=== PATIENT | male | born 1930 | race Caucasian/White ===

== ENCOUNTER 2017-10-29 19:26 | Emergency (ER) | payer MEDICARE, OTHER ==
--- NOTE | 2017-10-29 19:40 | ER Document Report ---
ED General - General Chief Complaint: General Weakness Stated Complaint: WEAKNESS Time Seen by Provider: 10/29/17 19:32 Notes: Patient is an 87-year-old male that comes emergency department by EMS from [facility] for chief complaint of weakness. EMS states they initially were called out for change in behavior and aggressiveness although on arrival patient was calm, relaxed, cooperative. Patient states he just "does not feel right" and he feels "weak all over". He denies specific headache, chest pain, shortness of breath, fever/chills, nausea/vomiting. He states he did eat today. Past medical history includes CVA, CAD, dementia, BPH, and reported lung mass per paperwork. Patient has DO NOT RESUSCITATE paperwork with him. TRAVEL OUTSIDE OF THE [place] IN LAST 30 DAYS: No Past Medical History - General Information source: Patient, Transfer Record, Emergency Med Personnel - Social History Smoking Status: Never Smoker Frequency of alcohol use: None Drug Abuse: None [facility] with: [facility] Family History: Reviewed & Not Pertinent - Past Medical History Cardiac Medical History: Reports: Hx Coronary Artery Disease Neurological Medical History: Reports: Hx Cerebrovascular Accident Malignancy Medical History: Reports Hx Lung Cancer - Immunizations Hx Diphtheria, Pertussis, Tetanus Vaccination: Yes Review of Systems - Review of Systems Constitutional: See HPI EENT: No symptoms reported Cardiovascular: No symptoms reported Respiratory: No symptoms reported Gastrointestinal: No symptoms reported Genitourinary: No symptoms reported Male Genitourinary: No symptoms reported Musculoskeletal: No symptoms reported Skin: No symptoms reported Hematologic/Lymphatic: No symptoms reported Neurological/Psychological: See HPI Physical Exam - Vital signs Vitals: Temp 98.0 F 10/29/17 19:37 - Notes Notes: GENERAL: Patient sitting on the bed with his eyes closed. He will open his eyes when prompted, he will follow directions, he appears drowsy but he does not appear to be in any distress. HEAD: Normocephalic, atraumatic. EYES: Pupils equal, round, and reactive to light. Extraocular movements intact. ENT: Oral mucosa moist, tongue midline. [Nares patent, no nasal septal hematoma , TM's intact.] NECK: Full range of motion. Supple. Trachea midline. LUNGS: Clear to auscultation bilaterally, no wheezes, rales, or rhonchi. No respiratory distress. HEART: Regular rate and rhythm. Systolic murmur. ABDOMEN: Soft, non-tender. Non-distended. Bowel sounds present in all 4 quadrants. EXTREMITIES: Moves all 4 extremities spontaneously. No edema, normal radial and dorsalis pedis pulses bilaterally. No cyanosis. BACK: no cervical, thoracic, lumbar midline tenderness. No saddle anesthesia, normal distal neurovascular exam. NEUROLOGICAL: Patient oriented to person and place, normal speech, unable to give me details about earlier today [cranial nerves II through XII grossly intact]. SKIN: Warm, dry, normal turgor. No rashes or lesions noted. Course - Re-evaluation Re-evalutation: Patient complains he does not "feel right" and he feels weak. General assessment was performed based on his altered behavior and his complaint, CBC, chemistry, urinalysis are generally unremarkable. BUN mildly elevated. Troponin is not elevated, CK is unremarkable. Chest x-ray shows no mass, CT of the head is unremarkable. Vital signs unremarkable. Patient was given IV fluids, afterwards he was fed, after this he states he feels great, no complaints. Discussed evaluation, patient will be discharged back to long-term care facility, patient states agreement with this plan. Stable at time of discharge. - Vital Signs Vital signs: Temp Pulse Resp BP Pulse Ox 97.9 F 18 127/55 H 100 10/29/17 22:01 10/29/17 22:23 10/29/17 22:23 10/29/17 22:23 - Laboratory Result Diagrams: 10/29/17 20:00 10/29/17 20:00 Laboratory results interpreted by me: 10/29/17 10/29/17 10/29/17 19:33 20:00 20:00 RBC 3.18 L Hgb 10.1 L Hct 29.8 L RDW 15.1 H BUN 24 H Est GFR (Non-Af Amer) 58 L Glucose 115 H Total Protein 6.2 L Urine Blood SMALL H Discharge - Discharge Clinical Impression: Generalized weakness, Outbursts of explosive behavior Condition: Stable Disposition: HOME, SELF-CARE Additional Instructions: No concerning abnormality is seen on evaluation of weakness and behavioral outbursts. He was treated for some dehydration. No evidence of infection other concerning findings at this time. Follow-up with his provider for additional evaluation and management. Return to the emergency department for any concerning or worsening symptoms - fever, passing out, or any other concerning symptoms. Referrals: ROBERT ARENAS, ROVING DEPARTMENT SUPERVISOR [Primary Care Provider] - Follow up as needed
[2017-10-29 19:50] LABS: APPEARANCE,URINE CLEAR; BILIRUBIN,URINE NEGATIVE (NEGATIVE); COLOR,URINE YELLOW; GLUCOSE, URINE NEGATIVE (NEGATIVE); KETONES,URINE NEGATIVE (NEGATIVE); LEUKOCYTE ESTERASE,URINE NEGATIVE (NEGATIVE); NITRITE,URINE NEGATIVE (NEGATIVE); PROTEIN,URINE NEGATIVE (NEGATIVE); URINE SPECIFIC GRAVITY 1.015; UROBILINOGEN,URINE NEGATIVE mg/dL (<2.0)
[2017-10-29 20:18] LABS: ABSOLUTE EOSINOPHILS # (AUTO) 0.1 10^3/uL (0.0-0.6); ABSOLUTE LYMPHOCYTES (AUTO) 0.9 10^3/uL (0.5-4.7); ABSOLUTE MONOCYTES (AUTO) 0.4 10^3/uL (0.1-1.4); ABSOLUTE NEUT (AUTO) 4.5 10^3/uL (1.7-8.2); BASOPHILS % (AUTO) 0.3 % (0-2); EOSINOPHILS % (AUTO) 1.1 % (0-6); HEMATOCRIT 29.8 % (37.9-51.0); HEMOGLOBIN 10.1 g/dL (13.5-17.0); LYMPHOCYTES % (AUTO) 15.4 % (13-45); MEAN CORPUSCULAR HEMOGLOBIN 31.8 pg (27.0-33.4); MEAN CORPUSCULAR HGB CONC 33.9 g/dL (32.0-36.0); MEAN CORPUSCULAR VOLUME 94 fl (80-97); MONOCYTES % (AUTO) 7.4 % (3-13); PLATELET COUNT 186 10^3/uL (150-450); RED BLOOD COUNT 3.18 10^6/uL (4.35-5.55); RED CELL DISTRIBUTION WIDTH 15.1 % (11.5-14.0); SEGMENTED NEUTROPHILS % (AUTO) 75.8 % (42-78); TOTAL CELLS COUNTED % (AUTO) 100 %
--- NOTE | 2017-10-29 20:27 | RADIOLOGY REPORT (SQ) ---
EXAM DESCRIPTION: CHEST SINGLE VIEW COMPLETED DATE/TIME: 10/29/2017 8:10 pm REASON FOR STUDY: weakness COMPARISON: None. EXAM PARAMETERS: NUMBER OF VIEWS: One view. TECHNIQUE: Single frontal radiographic view of the chest acquired. RADIATION DOSE: NA LIMITATIONS: None. FINDINGS: LUNGS AND PLEURA: There appears to be a 2 cm suprahilar mass on the left. MEDIASTINUM AND HILAR STRUCTURES: No masses. Contour normal. HEART AND VASCULAR STRUCTURES: Heart normal in size. Normal vasculature. BONES: No acute findings. HARDWARE: None in the chest. OTHER: No other significant finding. IMPRESSION: Left suprahilar mass. TECHNICAL DOCUMENTATION: JOB ID: [id number] [employer]- All Rights Reserved Reading location - IP/workstation name: [email or web address]
[2017-10-29 20:29] LABS: ALANINE AMINOTRANSFERASE 30 U/L (21-72); ALBUMIN 3.7 g/dL (3.5-5.0); ALKALINE PHOSPHATASE 54 U/L (38-126); ANION GAP 9 (5-19); ASPARTATE AMINO TRANSFERASE 33 U/L (17-59); BILIRUBIN,DIRECT 0.2 mg/dL (0.0-0.4); BILIRUBIN,TOTAL 0.5 mg/dL (0.2-1.3); BLOOD UREA NITROGEN 24 mg/dL (7-20); CALCIUM 8.9 mg/dL (8.4-10.2); CARBON DIOXIDE 28 mmol/L (22-30); CHLORIDE 104 mmol/L (98-107); CREATINE KINASE 105 U/L (55-170); GLUCOSE 115 mg/dL (75-110); POTASSIUM 4.2 mmol/L (3.6-5.0); SODIUM 141.2 mmol/L (137-145); TOTAL PROTEIN 6.2 g/dL (6.3-8.2)
[2017-10-29] MEDS ORDERED: NORMAL SALINE 1000 ML 500 ML IV ONE (20:32)
--- NOTE | 2017-10-29 21:13 | RADIOLOGY REPORT (SQ) ---
EXAM DESCRIPTION: CT HEAD WITHOUT COMPLETED DATE/TIME: 10/29/2017 8:27 pm REASON FOR STUDY: weakness, AMS, hx lung cancer COMPARISON: None. TECHNIQUE: Axial images acquired through the brain without intravenous contrast. Images reviewed wi th bone, brain and subdural windows. Additional sagittal and coronal reconstructions were generated. Images stored on PACS. All CT scanners at this facility use dose modulation, iterative reconstruction, and/or weight based d osing when appropriate to reduce radiation dose to as low as reasonably achievable (ALARA). [facility]: Dose Right [facility]: CareDose [facility]: Dose Right [facility]: Teradose 4D [facility]: Smart SpinSnap RADIATION DOSE: CT Rad equipment meets quality standard of care and radiation dose reduction techniq ues were employed. CTDIvol: 53.2 mGy. DLP: 1044 mGy-cm. mGy. LIMITATIONS: None. FINDINGS: VENTRICLES: Prominent ventricles secondary to involutional atrophy. CEREBRUM: Cortical atrophy. No masses. No hemorrhage. No midline shift. No evidence for acute inf arction. Extensive areas of low density in the white matter most likely chronic small vessel ischemic changes. CEREBELLUM: No masses. No hemorrhage. No alteration of density. No evidence for acute infarction. EXTRAAXIAL SPACES: No fluid collections. No masses. ORBITS AND GLOBE: No intra- or extraconal masses. Normal contour of globe without masses. CALVARIUM: No fracture. PARANASAL SINUSES: No fluid or mucosal thickening. SOFT TISSUES: No mass or hematoma. OTHER: No other significant finding. IMPRESSION: MICROVASCULAR ISCHEMIA AND GENERALIZED ATROPHY. NO ACUTE IMAGING FINDINGS IN THE BRAIN EVIDENCE OF ACUTE STROKE: NO. COMMENT: Quality ID # [id number]: Final reports with documentation of one or more dose reduction techniques (e.g., Automated exposure control, adjustment of the mA and/or kV according to patient size, use of iterative reconstruction technique) TECHNICAL DOCUMENTATION: JOB ID: [id number] [employer]- All Rights Reserved Reading location - IP/workstation name: [email or web address]
[2017-10-29 21:18] VITALS: BP 127/55
--- NOTE | 2017-10-29 21:34 | EKG REPORT ---
SEVERITY:- ABNORMAL ECG - SINUS RHYTHM FIRST DEGREE AV BLOCK RIGHT BUNDLE BRANCH BLOCK : Confirmed by: Carlene Arroyo 29-Oct-2017 21:33:12
== END 2017-10-29 22:51 | disposition home or self-care (01) ==
LOC: ER 19:26
DX: R53.1 Weakness (principal); R46.89 Other symptoms and signs involving appearance and behavior; I25.10 Atherosclerotic heart disease of native coronary artery without angina pectoris; Z66 Do not resuscitate; Z86.73 Personal history of transient ischemic attack (TIA), and cerebral infarction without residual deficits; Z85.118 Personal history of other malignant neoplasm of bronchus and lung
CPT/HCPCS: 93005; 99285; 36415; 82550; 85025; 80053; 81001; 84484; 71045; 70450; 93010; J7030

== ENCOUNTER 2017-11-07 17:53 | Emergency (ER) | payer OTHER, MEDICARE ==
[2017-11-07] MEDS: HALOPERIDOL 2 MG TABLET PO ONE ×2 (20:49→21:53)
[2017-11-07 20:50] LABS: ABSOLUTE EOSINOPHILS # (AUTO) 0.1 10^3/uL (0.0-0.6); ABSOLUTE LYMPHOCYTES (AUTO) 1.1 10^3/uL (0.5-4.7); ABSOLUTE MONOCYTES (AUTO) 0.5 10^3/uL (0.1-1.4); ABSOLUTE NEUT (AUTO) 4.6 10^3/uL (1.7-8.2); BASOPHILS % (AUTO) 0.3 % (0-2); EOSINOPHILS % (AUTO) 2.3 % (0-6); HEMATOCRIT 31.1 % (37.9-51.0); HEMOGLOBIN 10.4 g/dL (13.5-17.0); LYMPHOCYTES % (AUTO) 17.5 % (13-45); MEAN CORPUSCULAR HEMOGLOBIN 30.9 pg (27.0-33.4); MEAN CORPUSCULAR HGB CONC 33.3 g/dL (32.0-36.0); MEAN CORPUSCULAR VOLUME 93 fl (80-97); MONOCYTES % (AUTO) 7.3 % (3-13); PLATELET COUNT 184 10^3/uL (150-450); RED BLOOD COUNT 3.36 10^6/uL (4.35-5.55); RED CELL DISTRIBUTION WIDTH 15.3 % (11.5-14.0); SEGMENTED NEUTROPHILS % (AUTO) 72.6 % (42-78); TOTAL CELLS COUNTED % (AUTO) 100 %; WHITE BLOOD COUNT 6.4 10^3/uL (4.0-10.5)
[2017-11-07 21:06] LABS: ALANINE AMINOTRANSFERASE 29 U/L (21-72); ALKALINE PHOSPHATASE 59 U/L (38-126); ANION GAP 12 (5-19); ASPARTATE AMINO TRANSFERASE 24 U/L (17-59); BILIRUBIN,DIRECT 0.2 mg/dL (0.0-0.4); BILIRUBIN,TOTAL 0.4 mg/dL (0.2-1.3); BLOOD UREA NITROGEN 21 mg/dL (7-20); CARBON DIOXIDE 24 mmol/L (22-30); CHLORIDE 104 mmol/L (98-107); GLUCOSE 90 mg/dL (75-110); POTASSIUM 4.2 mmol/L (3.6-5.0); SODIUM 140.1 mmol/L (137-145); TOTAL PROTEIN 6.8 g/dL (6.3-8.2)
[2017-11-07 21:10] LABS: ALCOHOL < 10 mg/dL (NONE DETECTED)
--- NOTE | 2017-11-07 21:23 | EKG REPORT ---
SEVERITY:- ABNORMAL ECG - SINUS RHYTHM FIRST DEGREE AV BLOCK BORDERLINE LEFT AXIS DEVIATION NONSPECIFIC REPOL ABNORMALITY, DIFFUSE LEADS : Confirmed by: Maya Chavez MD 07-Nov-2017 21:22:32
[2017-11-07 22:25] LABS: APPEARANCE,URINE CLEAR; BILIRUBIN,URINE NEGATIVE (NEGATIVE); COLOR,URINE YELLOW; GLUCOSE, URINE NEGATIVE (NEGATIVE); KETONES,URINE NEGATIVE (NEGATIVE); LEUKOCYTE ESTERASE,URINE NEGATIVE (NEGATIVE); NITRITE,URINE NEGATIVE (NEGATIVE); PROTEIN,URINE NEGATIVE (NEGATIVE); URINE SPECIFIC GRAVITY 1.012; UROBILINOGEN,URINE NEGATIVE mg/dL (<2.0)
[2017-11-07 22:38] LABS: URINE AMPHETAMINES SCREEN NEGATIVE; URINE BARBITURATES SCREEN NEGATIVE; URINE BENZODIAZEPINES SCREEN NEGATIVE; URINE COCAINE SCREEN NEGATIVE; URINE MARIJUANA (THC) SCREEN NEGATIVE; URINE METHADONE SCREEN NEGATIVE; URINE PHENCYCLIDINE SCREEN NEGATIVE
[2017-11-07] MEDS ORDERED: HALOPERIDOL 2 MG TABLET PO ONE (22:55)
[2017-11-07] MEDS ORDERED: LORAZEPAM 0.5 MG TABLET PO ONE (22:55)
[2017-11-07] MEDS ORDERED: LORAZEPAM 1 MG TABLET PO ONE (23:41)
[2017-11-08] MEDS ORDERED: HALOPERIDOL 2 MG TABLET PO PRN (03:58)
[2017-11-08] MEDS ORDERED: LORAZEPAM 1 MG TABLET PO PRN (03:59)
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
--- NOTE | 2017-11-08 09:58 | ER Document Report ---
Doctor's Note Notes: 11/08/17 09:55 Medical rounds: Chart reviewed and patient interviewed briefly. Vital signs are satisfactory. Laboratory values are satisfactory. Patient was apparently asleep, but was easily arousable. He denied any somatic complaints. He is medically stable at this time. Medication changes have been made per recommendations from psych team. Discharge planning will be engaged to begin seeking appropriate placement for this patient.
[2017-11-08] MEDS: CLOPIDOGREL BISULFATE 75 MG TABLET PO SCH (11:16)
[2017-11-08] MEDS: DIVALPROEX SODIUM 500 MG TAB.SR.24H PO SCH ×2 (11:16→17:12)
[2017-11-08] MEDS: ASPIRIN 81 MG TABLET, CHEWABLE PO SCH (11:16)
[2017-11-08] MEDS: BUSPIRONE HCL 10 MG TABLET PO SCH ×2 (11:16→17:12)
[2017-11-08] MEDS: LISINOPRIL 5 MG TABLET PO SCH (11:16)
[2017-11-08] MEDS ORDERED: TUBERCULIN,PURIF.PROT.DERIV. 5 TU/0.1 ML TEST 1 ML VIAL ID ONE (13:26)
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
[2017-11-09] MEDS: LISINOPRIL 5 MG TABLET PO SCH (10:46)
[2017-11-09] MEDS: ASPIRIN 81 MG TABLET, CHEWABLE PO SCH (10:46)
[2017-11-09] MEDS: BUSPIRONE HCL 10 MG TABLET PO SCH ×2 (10:46→18:12)
[2017-11-09] MEDS: CLOPIDOGREL BISULFATE 75 MG TABLET PO SCH (10:46)
[2017-11-09] MEDS: DIVALPROEX SODIUM 500 MG TAB.SR.24H PO SCH ×2 (10:46→18:12)
--- NOTE | 2017-11-10 10:13 | ER Document Report ---
Doctor's Note Notes: 11/10/17 10:12 Rounds: Patient is a social hold here in the emergency department. Patient is sleeping very soundly at this time so I am not going to awaken him. Review of his chart says that he has cancer of the lung. Also suffers from agitation and anxiety. Under hospice care. Has been residing at [facility], but is not eligible to return to that facility. Vital signs are all essentially normal. Lab studies on admission were normal. Patient appears to be medically stable for transfer or discharge. Briana Coburn MD
[2017-11-10] MEDS: LISINOPRIL 5 MG TABLET PO SCH (10:22)
[2017-11-10] MEDS: CLOPIDOGREL BISULFATE 75 MG TABLET PO SCH (10:23)
[2017-11-10] MEDS: ASPIRIN 81 MG TABLET, CHEWABLE PO SCH (10:23)
[2017-11-10] MEDS: DIVALPROEX SODIUM 500 MG TAB.SR.24H PO SCH ×2 (10:23→18:46)
[2017-11-10] MEDS: BUSPIRONE HCL 10 MG TABLET PO SCH ×2 (10:23→18:46)
[2017-11-10] MEDS: ACETAMINOPHEN 325 MG TABLET PO PRN ×2 (16:43→22:48)
--- NOTE | 2017-11-11 09:55 | ER Document Report ---
Doctor's Note Notes: 11/11/17 09:49 Rounds: Patient is a social hold because he was living at [facility] and his behavior became too aggressive towards staff and other residents. He remains stable here and acts appropriately. Lab studies done a few days ago were all essentially normal. His vital signs remained normal at all times. Yesterday the patient had a headache for which I prescribed some Tylenol and he says his headache went away and has not returned. Patient appears to be medically stable for discharge or transfer. rBiana Coburn MD
[2017-11-11] MEDS: CLOPIDOGREL BISULFATE 75 MG TABLET PO SCH (10:01)
[2017-11-11] MEDS: DIVALPROEX SODIUM 500 MG TAB.SR.24H PO SCH ×2 (10:01→17:14)
[2017-11-11] MEDS: BUSPIRONE HCL 10 MG TABLET PO SCH ×2 (10:01→17:14)
[2017-11-11] MEDS: ASPIRIN 81 MG TABLET, CHEWABLE PO SCH (10:01)
[2017-11-11] MEDS: LISINOPRIL 5 MG TABLET PO SCH (10:01)
[2017-11-11] MEDS: ZOLPIDEM TARTRATE 5 MG TABLET PO PRN (21:10)
[2017-11-11] MEDS: ACETAMINOPHEN 325 MG TABLET PO PRN (21:11)
[2017-11-12] MEDS: CLOPIDOGREL BISULFATE 75 MG TABLET PO SCH (09:36)
[2017-11-12] MEDS: LISINOPRIL 5 MG TABLET PO SCH (09:36)
[2017-11-12] MEDS: ASPIRIN 81 MG TABLET, CHEWABLE PO SCH (09:36)
[2017-11-12] MEDS: DIVALPROEX SODIUM 500 MG TAB.SR.24H PO SCH ×2 (09:36→19:00)
[2017-11-12] MEDS: BUSPIRONE HCL 10 MG TABLET PO SCH ×2 (09:36→19:00)
--- NOTE | 2017-11-12 10:13 | ER Document Report ---
Doctor's Note Notes: 11/12/17 10:11 87-year-old male presented from [facility] after increasing aggressive behavior. He has been discharged from there and we are attempting to find a place for him at this time. He has been cooperative, stable. Psychiatry has evaluated the patient and the medication recommendations at this time are Depakote 500 mg twice daily and BuSpar 10 mg twice daily. Patient has no current complaints. He is ambulating with a steady gait. Will await further psychiatric recommendations as far as placement. PHYSICAL EXAMINATION: GENERAL: Well-appearing, well-nourished and in no acute distress. HEAD: Atraumatic, normocephalic. EYES: Pupils equal round extraocular movements intact, conjunctiva are normal. ENT: Nares patent NECK: Normal range of motion LUNGS: No respiratory distress Musculoskeletal: Normal range of motion NEUROLOGICAL: Normal speech, normal gait. PSYCH: Normal mood, normal affect. SKIN: Warm, Dry, normal turgor, no rashes or lesions noted.
[2017-11-12] MEDS: ZOLPIDEM TARTRATE 5 MG TABLET PO PRN (23:11)
[2017-11-12] MEDS: ACETAMINOPHEN 325 MG TABLET PO PRN (23:11)
[2017-11-13] MEDS: DIVALPROEX SODIUM 500 MG TAB.SR.24H PO SCH ×2 (09:40→17:27)
[2017-11-13] MEDS: CLOPIDOGREL BISULFATE 75 MG TABLET PO SCH (09:40)
[2017-11-13] MEDS: LISINOPRIL 5 MG TABLET PO SCH (09:41)
[2017-11-13] MEDS: ASPIRIN 81 MG TABLET, CHEWABLE PO SCH (09:41)
[2017-11-13] MEDS: BUSPIRONE HCL 10 MG TABLET PO SCH ×2 (09:41→17:27)
--- NOTE | 2017-11-13 15:37 | ER Document Report ---
Doctor's Note Notes: 11/13/17 15:36 The patient is doing well today with no complaints. Arrangements have been made for him to go to a facility called [facility] in [place], [place] tomorrow for long-term living and care.
[2017-11-14] MEDS: ZOLPIDEM TARTRATE 5 MG TABLET PO PRN (00:18)
--- NOTE | 2017-11-14 09:48 | ER Document Report ---
Doctor's Note Notes: 11/14/17 09:46 Rounds: Chart reviewed. Patient sleeping soundly so not disturbed. Still awaiting placement. Vital signs all remained normal. No new lab review. Patient appears to be medically stable for transfer or discharge. Briana Coburn MD 11/14/17 12:09 Patient supposedly has a room assignment at another facility. He is supposed to leave here this afternoon. He will be given prescriptions for BuSpar and Depakote. Briana Coburn MD
[2017-11-14] MEDS: ASPIRIN 81 MG TABLET, CHEWABLE PO SCH (10:16)
[2017-11-14] MEDS: CLOPIDOGREL BISULFATE 75 MG TABLET PO SCH (10:16)
[2017-11-14] MEDS: LISINOPRIL 5 MG TABLET PO SCH (10:16)
[2017-11-14] MEDS: DIVALPROEX SODIUM 500 MG TAB.SR.24H PO SCH ×2 (10:16→18:17)
[2017-11-14] MEDS: BUSPIRONE HCL 10 MG TABLET PO SCH ×2 (10:17→18:17)
[2017-11-14 22:33] VITALS: BP 120/51
== END 2017-11-14 22:34 ==
LOC: ER 17:53
DX: F01.51 Vascular dementia, unspecified severity, with behavioral disturbance (principal); F41.9 Anxiety disorder, unspecified; S40.812A Abrasion of left upper arm, initial encounter; S40.811A Abrasion of right upper arm, initial encounter; W13.4XXA Fall from, out of or through window, initial encounter; Y92.129 Unspecified place in nursing home as the place of occurrence of the external cause; R51 Headache; C34.90 Malignant neoplasm of unspecified part of unspecified bronchus or lung; Z87.891 Personal history of nicotine dependence; I25.10 Atherosclerotic heart disease of native coronary artery without angina pectoris; I25.2 Old myocardial infarction
CPT/HCPCS: 93005; 99285; 36415; 80307 ×2; 85025; 80053; 81001; 93010; J3490 ×2